=== PATIENT | male | born 1985 | race Caucasian/White ===

== ENCOUNTER 2020-06-21 07:56 | Outpatient (CLI) | payer BC, SELFPAY ==
--- NOTE | 2020-06-21 08:10 | MR_ITS ---
WS: [id number] MRI LEFT KNEE NONCONTRAST TECHNIQUE: Axial PD, coronal PD fat sat, coronal PD, sagittal PD, and sagittal PD fat-sat images obta ined. CLINICAL INFORMATION: LEFT KNEE INTERNAL DERANGEMENT COMPARISON: None. FINDINGS: Distal quadriceps and patella tendons are intact. Prepatellar soft tissue edema. Small to moderate tomas prapatellar effusion. Hypertrophic patella. Medial and lateral collateral ligaments are intact. Media l and lateral meniscus are normal in appearance. No acute appearing meniscal tears. Small popliteal cyst measuring 2.3 x 2.3 x 3.6 CM. Mild chondromalacia patella worse in the lateral p atella facet. No subchondral edema. Medial and lateral collateral ligaments appear intact. MR/MR knee LT wo con* [id number] IMPRESSION: 1. Mild prepatellar soft tissue edema with moderate suprapatellar effusion. 2. Anterior and posterior cruciate ligaments are intact. 3. No acute appearing meniscal tears. 4. Mild chondromalacia patella worse in the lateral patella facet. 5. Small popliteal cyst as described above.
== END 2020-06-21 07:57 | disposition home or self-care (01) ==
LOC: RADWPI 08:02
PROVIDERS: PCP Physician Assistant; Visit Provider Physician Assistant
DX: M23.92 Unspecified internal derangement of left knee (principal); R60.0 Localized edema; M71.22 Synovial cyst of popliteal space [Baker], left knee; M22.42 Chondromalacia patellae, left knee; M25.462 Effusion, left knee
CPT/HCPCS: 73721

== ENCOUNTER → 2022-05-23 10:39 | Outpatient (BNVA) | payer BC, SELFPAY | PROVIDERS: PCP Physician Assistant; Visit Provider Nurse Practitioner Family | DX: M25.562 Pain in left knee (principal) | CPT/HCPCS: 73560; 73565 ==

== ENCOUNTER 2022-07-20 15:54 | Outpatient (CLI) | payer BC, SELFPAY ==
--- NOTE | 2022-07-20 16:00 | MR_ITS ---
WS: [id number] MRI LEFT KNEE NONCONTRAST TECHNIQUE: Axial PD, coronal PD fat sat, coronal PD, sagittal PD, and sagittal PD fat-sat images obta ined. CLINICAL INFORMATION: Left knee pain COMPARISON: June 21, 2020 FINDINGS: Distal quadriceps and patella tendons are intact. ACL and PCL appear intact. New T2 hyperintense lobu lated ganglion cyst or meniscal cyst along the intercondylar notch involving the lateral meniscal kendall t. Associated blunting of the lateral meniscus at the meniscal root. Findings suspicious for meniscal root tear. Normal medial meniscus. Mild chondromalacia patella. Medial and lateral patellar retinaculum are inta ct. Small joint effusion. Tiny popliteal cyst. Normal lateral collateral ligament. High-grade tear of the medial collateral ligament just distal to the femoral origin. Associated fluid signal abnormalit y. This is new from previous. MR/MR knee LT wo con* [id number] IMPRESSION: 1. Normal ACL and PCL. 2. Small lobulated ganglion cyst or parameniscal cyst along the intercondylar notch is new from previous measuring 8 mm extending to the lateral meniscal kendall t suspicious for meniscal root tear. 3. High-grade tear involving the MCL origin with associated T2 signal abnormal ity and fluid. This is new from previous. 4. Normal lateral collateral ligament. 5. Small suprapatellar effusion. 6. Mild chondromalacia patella. 7. No other significant changes. Outbridge grading: grade II: blister-like swelling/fraying of articular cartila ge extending to surface
== END 2022-07-20 15:55 | disposition home or self-care (01) ==
PROVIDERS: PCP Physician Assistant; Visit Provider Nurse Practitioner Family
DX: S83.412A Sprain of medial collateral ligament of left knee, initial encounter (principal); X58.XXXA Exposure to other specified factors, initial encounter; M25.462 Effusion, left knee; M22.42 Chondromalacia patellae, left knee
CPT/HCPCS: 73721

== ENCOUNTER → 2023-11-19 08:24 | Outpatient (BNVA) | payer BC, SELFPAY | PROVIDERS: PCP Physician Assistant; Visit Provider Specialist | DX: M25.562 Pain in left knee (principal); G89.29 Other chronic pain | CPT/HCPCS: 73560; 73565 ==

== ENCOUNTER 2023-12-20 12:39 | Outpatient (CLI) | payer BC, SELFPAY ==
--- NOTE | 2023-12-20 12:44 | MR_ITS ---
WS: [id number] MRI LEFT KNEE ARTHROGRAM TECHNIQUE: Axial PD, coronal PD fat sat, coronal PD, sagittal PD, and sagittal PD fat-sat images obta ined. Multiplanar fat saturation imaging post intra-articular administration of gadolinium. CLINICAL INFORMATION: left knee pain, left knee injury COMPARISON: MRI 07/20/2022 FINDINGS: Distal quadriceps and patella tendons are intact. Normal ACL and PCL. Normal bone marrow signal in th e femoral condyles and tibial plateau. Head of the fibula is normal in appearance. Chronic thinning o f the medial and lateral meniscus. No acute appearing meniscal tears today. Mild chondromalacia patella. Medial and lateral patellar retinaculum intact. Normal lateral collatera l ligament. Normal popliteus. Previously described fluid deep to the medial collateral ligament has r esolved. Somewhat diminutive medial collateral ligament appears intact. Previously described cystic l esion along the intercondylar notch appears decreased in size today. Today this measures approximatel y 4.6 mm in maximum dimension. Mild chondromalacia medial and lateral joint compartments. Lobulated popliteal cyst measures approxi mately 1.0 x 3.6 cm AP by craniocaudal. Small plica or septations in the suprapatellar bursa. IMPRESSION: 1. ACL and PCL appear intact. 2. Mild chronic thinning of the medial and lateral meniscus. No acute appearing meniscal tears. 3. Previously described cystic lesion along the intercondylar notch is decreased in size measuring o nly 4.6 mm today. 4. Mild chondromalacia patella. 5. Medial and lateral collateral ligaments appear intact. Somewhat diminutive medial collateral liga ment. 6. Small lobulated popliteal cyst measuring 1.0 x 3.6 cm AP by craniocaudal. 7. Grade II chondromalacia medial and lateral joint compartments. 8. Small plica or septations in the suprapatellar bursa. Outbridge grading: grade II: blister-like swelling/fraying of articular cartilage extending to surfac e
--- NOTE | 2023-12-20 13:00 | IR_ITS ---
WS: [id number] LEFT KNEE ARTHROGRAM Fluoroscopic guided left knee arthrogram. CLINICAL INFORMATION: left knee pain, left knee injury COMPARISON: None. TECHNIQUE: The procedure including risks, benefits, and complications were discussed with the patient , who agreed to proceed. Timeout was performed. Using sterile technique, the patient was prepped and draped in the usual sterile fashion. After 1% lidocaine injection using fluoroscopic guidance, a 22-g auge spinal needle was advanced into the left patellofemoral compartment. Subsequently 40 cc of a mix ture containing 10 cc 1% lidocaine, 20 cc normal saline, 10 cc Omnipaque 240, and 0.2 cc gadolinium w as administered. No immediate complications. FLUOROSCOPY TIME: 1min [id number] # of spot films: 3 IMPRESSION: Uncomplicated left knee fluoroscopic guided arthrogram. MRI to follow.
== END 2023-12-20 12:40 | disposition home or self-care (01) ==
LOC: RAD 12:40
PROVIDERS: PCP Physician Assistant; Visit Provider Specialist
DX: S83.207A Unspecified tear of unspecified meniscus, current injury, left knee, initial encounter (principal); X58.XXXA Exposure to other specified factors, initial encounter; M25.861 Other specified joint disorders, right knee; M22.42 Chondromalacia patellae, left knee; M71.22 Synovial cyst of popliteal space [Baker], left knee
CPT/HCPCS: 27369; 73723; 77002